=== PATIENT | female | born 1990 | race Caucasian/White ===

== ENCOUNTER → 2024-10-14 09:14 | Outpatient (REF) | payer OTHER, SELFPAY | LOC: HWRAD 09:14 | PROVIDERS: ATTENDING PHYSICIAN Family Medicine | DX: M62.838 Other muscle spasm (principal); M50.30 Other cervical disc degeneration, unspecified cervical region | CPT/HCPCS: 72052 ==

== ENCOUNTER → 2025-01-04 12:11 | Outpatient (REF) | payer OTHER, SELFPAY | LOC: MRI 3T 12:11 | PROVIDERS: ATTENDING PHYSICIAN Internal Medicine; FAMILY PHYSICIAN Family Medicine | DX: M54.2 Cervicalgia (principal); M54.11 Radiculopathy, occipito-atlanto-axial region | CPT/HCPCS: 72141 ==

== ENCOUNTER → 2025-03-09 09:21 | Outpatient (REF) | payer OTHER, SELFPAY | LOC: RCS 09:21 | PROVIDERS: ATTENDING PHYSICIAN Nurse Practitioner Adult Health; FAMILY PHYSICIAN Family Medicine | DX: R00.2 Palpitations (principal); Z3A.01 Less than 8 weeks gestation of pregnancy; R94.6 Abnormal results of thyroid function studies | CPT/HCPCS: 93225; 93226 ==

== ENCOUNTER → 2025-04-20 09:25 | Outpatient (REF) | payer OTHER, SELFPAY | LOC: HWRCS 09:25 | PROVIDERS: ATTENDING PHYSICIAN Internal Medicine Cardiovascular Disease; FAMILY PHYSICIAN Family Medicine | DX: R00.2 Palpitations (principal) | CPT/HCPCS: 93306 ==